=== PATIENT | female | born 1970 | race American Indian/Alaskan Native ===

== ENCOUNTER 2021-02-19 16:00 | Outpatient (AMBR) | payer BC, OTHER, SELFPAY ==
--- NOTE | 2021-02-19 17:25 | PT.ODS1RPT ---
PT OP Progress/Discharge Note Date of Service: 02/19/21 Progress Note/DC Note Progress Note/Discharge Note: DC Note Patient Information Visit Reasons: post op right shoulder Service Continue Service or Discharge: Discharge Discharge Date: 02/19/21 Status Subjective: The R shoulder is not hurting and she can reach up almost as much as the other arm. She has difficulty with reaching behind her back to fasten her bra. Objective: R shoulder AROM: Strength: FF: 148 deg 4-/5 Abd: 130 deg 4/5 Erot: 70 deg 4/5 HBB: to L5 Assessment: Pt has attended 8 Rx visits with inconsistent attendance over the past 3 months and made good progress to meet therapy goals. AROM has improved to almost full and strength is good but she has difficulty reaching behind the back. She was taught a stretch to improve ROM behind the back. Pt encouraged to continue at home Plan: D/C with [facility] Office Procedures PT Procedures PT Date of Service: 02/19/21 Therapeutic Exercise 30 minutes: Yes
== END 2021-03-04 23:59 | disposition home or self-care (01) ==
PROVIDERS: PCP Orthopaedic Surgery; Referring Provider Orthopaedic Surgery; Visit Provider Orthopaedic Surgery
DX: M25.511 Pain in right shoulder (principal); M62.89 Other specified disorders of muscle; E11.9 Type 2 diabetes mellitus without complications; I10 Essential (primary) hypertension
CPT/HCPCS: 97110

== ENCOUNTER → 2024-10-30 | Outpatient (CLI) | payer BC, OTHER, SELFPAY ==
--- NOTE | 2024-10-30 13:15 | XR_ITS ---
Examination: Screening digital mammography, bilateral Computer aided detection 3-D breast Tomosynthesis, bilateral Date and time of exam: October 30, 2024 1257 hours Compared to mammograms dating to September 02, 2012 Indication: Screening Technique: Nonmagnified MLO, CC views of the breasts to been obtained, reconstructed from 3-D Tomosynthesis images. R2 computer aided detection program utilized for evaluation of suspicious masses and/or abnormal calcifications. 3-D Tomosynthesis images obtained. Findings: Scattered areas of probable glandular density. 12 mm nodule upper outer right breast Benign calcifications Impression: BI-RADS Category 0: Incomplete: Need additional imaging evaluation 12 mm nodule upper outer right breast, recommend follow-up spot tomographic views of this nodule as well as right breast sonography to complete workup.
== END | disposition home or self-care (01) ==
PROVIDERS: PCP Nurse Practitioner Family; Referring Provider Nurse Practitioner Family; Visit Provider Nurse Practitioner Family
DX: Z12.31 Encounter for screening mammogram for malignant neoplasm of breast (principal); N63.11 Unspecified lump in the right breast, upper outer quadrant
CPT/HCPCS: 77063; 77067

== ENCOUNTER → 2025-02-08 | Outpatient (CLI) | payer BC, OTHER, SELFPAY ==
--- NOTE | 2025-02-08 10:00 | XR_ITS ---
Examination: Breast ultrasound, unilateral, right Date and time of exam: February 08, 2025 1028 hours INDICATIONS: Mammogram October 30, 2024 12 mm nodule upper outer right breast Technique: Real-time baird scale ultrasonographic imaging performed right breast including all 4 quadrants as well as nipple retroareolar and axillary region. Findings: 8:00 cyst 7 x 6 mm 8:00 cyst 6 x 9 mm No solid nodules IMPRESSION: BI-RADS Category 2: Benign findings
--- NOTE | 2025-02-08 10:30 | XR_ITS ---
Examination: Diagnostic digital mammography, unilateral, right Computer aided detection 3-D breast Tomosynthesis, unilateral Date and time of exam: February 08, 2025 1028 hours INDICATIONS: Mammogram October 30, 2024 12 mm nodule upper outer right breast Technique: Nonmagnified MLO, CC views of the right breast have been obtained, reconstructed from 3-D Tomosynthesis images. R2 computer aided detection program utilized for evaluation of suspicious masses and/or abnormal calcifications. 3-D Tomosynthesis images obtained. Findings: Scattered areas of fibroglandular density. No suspicious nodule compared on the spot compression views Impression: BI-RADS category 2: Benign findings Return to yearly follow-up mammography
== END | disposition home or self-care (01) ==
PROVIDERS: PCP Nurse Practitioner Family; Referring Provider Nurse Practitioner Family; Visit Provider Nurse Practitioner Family
DX: R92.321 Mammographic fibroglandular density, right breast (principal)
CPT/HCPCS: 76641; 77061; 77065; G0279